=== PATIENT | female | born 1980 | race Caucasian/White ===

== ENCOUNTER 2016-10-28 11:38 | Emergency (ER) | payer SELFPAY ==
[~2016-10-28] VITALS: Ht 175.2 cm; Wt 90.7 kg
[~2016-10-28 11:38] MED LIST: 'PARAFON FORTE500 M1 PO; AMOXICILLIN500 M2 PO; AMOXICILLIN500 MG PO; ANAPROX DS550 MG PO; AUGMENTIN 875 M1 TAB PO; B12,B-12,B 12500 MC1 PO; BACTRIM DS 8001 TA1 PO; CATAFLAM50 MG PO; CIPROFLOXACIN500 MG PO; CLARITIN10 MG PO; COMBIVENT1 ARO IH; CYCLOBENZAPRINE10 MG PO; CYCLOBENZAPRINE5 M3 PO; DIFLUCAN150 MG PO; FLEXERIL5 MG PO; HYDROCODONE BIT1 T11 PO; IBUPROFEN800 MG PO; KEFLEX500 MG PO; KETOROLAC10 MG PO; MACROBID100 M1 PO; MOTRIN800 MG PO; Motrin,Rufen800 MG PO; NAPROSYN500 MG PO; NEURONTIN300 MG PO; NKHM PO; NORCO 325 MG-51 TAB PO; PYRIDIUM100 MG PO; PYRIDIUM200 MG PO; Percocet 325 MG1 TAB PO; SUBOXONE 8 MG-1 EACH SL; TIZANIDINE HCL4 MG PO; TORADOL10 MG PO; TRAMADOL HCL50 MG PO; TRIMOX500 MG PO; ULTRAM50 MG PO; VICO75300; VICODIN 5/500 505 MG PO; VICODIN ES 7501 TAB PO; XANAX2 MG; ZANAFLEX4 M1 PO; ZITHROMAX Z PA250 MG PO
[2016-10-28 11:45] VITALS: BP 143/90
[2016-10-28] MEDS ORDERED: IBU800 M1 PO (11:46)
== END 2016-10-28 14:29 | disposition home or self-care (01) ==
LOC: ED 11:38
DX: G43.909 Migraine, unspecified, not intractable, without status migrainosus (principal); R93.0 Abnormal findings on diagnostic imaging of skull and head, not elsewhere classified; F17.200 Nicotine dependence, unspecified, uncomplicated; Z88.8 Allergy status to other drugs, medicaments and biological substances

== ENCOUNTER 2017-01-12 10:44 | Emergency (ER) | payer OTHER ==
[~2017-01-12] VITALS: Ht 175.2 cm; Wt 90.7 kg
[~2017-01-12 10:44] MED LIST changes: +IBU800 M1 PO
[2017-01-12 10:53] VITALS: BP 138/83
[2017-01-12] MEDS ORDERED: AMOXICILLIN500 M2 PO (12:50)
[2017-01-12] MEDS ORDERED: ZYRTEC10 MG PO (12:50)
== END 2017-01-12 14:08 | disposition home or self-care (01) ==
LOC: ED 10:44
DX: J01.90 Acute sinusitis, unspecified (principal); F17.200 Nicotine dependence, unspecified, uncomplicated; Z88.8 Allergy status to other drugs, medicaments and biological substances

== ENCOUNTER 2017-09-15 10:55 | Emergency (ER) | payer OTHER ==
[~2017-09-15] VITALS: Ht 175.2 cm; Wt 90.7 kg
[~2017-09-15 10:55] MED LIST changes: +AMINOPHYLLIN200 MG PO; +FLOMAX0.4 MG PO; +HYDROCODONE-AC1 EAC1 PO; +ZOFRAN ODT4 MG SL; +ZYRTEC10 MG PO
[2017-09-15 10:58] VITALS: BP 127/77
[2017-09-15 11:52] LABS: BASO # 0.1 10*3/uL (0.0-0.1); BASO % 0.5 % (0.0-1.0); EOS # 0.3 10*3/uL (0.0-0.4); EOS % 2.2 % (1.0-4.0); HEMATOCRIT 40.2 % (37.0-47.0); HEMOGLOBIN 13.7 g/dl (12.0-16.0); LYMPH # 3.2 10*3/uL (1.3-4.4); LYMPH % 27.9 % (27.0-41.0); MEAN CELL VOLUME 89.5 fl (81.0-99.0); MEAN CORPUSCULAR HGB 30.5 pg (27.0-31.0); MEAN CORPUSCULAR HGB CONC 34.1 g/dl (33.0-37.0); MEAN PLATELET VOLUME 9.4 fl (9.6-12.3); MONO # 0.7 10*3/uL (0.1-1.0); MONO % 5.9 % (3.0-9.0); NEUT # 7.3 10*3/uL (2.3-7.9); NEUT % 63.1 % (47.0-73.0); PLATELET COUNT AUTOMATED 301 10*3/uL (130-400); RED BLOOD COUNT 4.49 10*6/uL (4.10-5.10); RED CELL DISTRI WIDTH 13.5 % (0-14.5); WHITE BLOOD COUNT 11.6 10*3/uL (4.8-10.8)
[2017-09-15 12:07] LABS: ALBUMIN 3.9 gm/dl (3.1-4.5); ALKALINE PHOSPHATASE 88 U/L (45-117); BUN 15 mg/dl (7-24); CHLORIDE 107 mmol/L (98-107); CREATININE 0.98 mg/dL (0.55-1.02); POTASSIUM 3.4 mmol/L (3.5-5.1); SGOT/AST 15 IU/L (3-35); SGPT/ALT 16 U/L (12-78); SODIUM 139 mmol/L (136-145); TOTAL PROTEIN 7.5 gm/dL (6.4-8.2)
[2017-09-15] MEDS ORDERED: NAPROSYN500 MG PO (14:06)
[2017-09-15] MEDS ORDERED: CYCLOBENZAPRINE5 M3 PO (14:06)
== END 2017-09-15 14:16 | disposition home or self-care (01) ==
LOC: ED 10:55
PROVIDERS: Nurse Practitioner
DX: S00.83XA Contusion of other part of head, initial encounter (principal); Z90.710 Acquired absence of both cervix and uterus; Y04.2XXA Assault by strike against or bumped into by another person, initial encounter; Y93.89 Activity, other specified; Y92.89 Other specified places as the place of occurrence of the external cause; Y99.8 Other external cause status; Z88.8 Allergy status to other drugs, medicaments and biological substances

== ENCOUNTER 2017-10-24 14:53 | Emergency (ER) | payer OTHER ==
[~2017-10-24] VITALS: Ht 175.2 cm; Wt 90.7 kg
[2017-10-24 14:56] VITALS: BP 139/93
[2017-10-24 15:12] LABS: BILIRUBIN NEGATIVE (NEGATIVE); BLOOD 1+ (NEGATIVE); CLARITY SL CLOUDY (CLEAR); COLOR YELLOW (YELLOW); GLUCOSE NEGATIVE (NEGATIVE); KETONE NEGATIVE (NEGATIVE); LEUKO ESTERASE TRACE (NEGATIVE); NITRITE NEGATIVE (NEGATIVE); SPECIFIC GRAVITY 1.015 (1.005-1.030); UROBILINOGEN 0.2 E.U./dl (0.2-1.0)
[2017-10-24 15:20] LABS: EPITHELIAL CELLS 15-20; MUCOUS TRACE
[2017-10-24 15:22] LABS: BASO # 0.1 10*3/uL (0.0-0.1); BASO % 0.6 % (0.0-1.0); EOS # 0.1 10*3/uL (0.0-0.4); EOS % 1.4 % (1.0-4.0); HEMATOCRIT 42.7 % (37.0-47.0); HEMOGLOBIN 14.2 g/dl (12.0-16.0); LYMPH # 2.3 10*3/uL (1.3-4.4); LYMPH % 24.6 % (27.0-41.0); MEAN CELL VOLUME 89.7 fl (81.0-99.0); MEAN CORPUSCULAR HGB 29.8 pg (27.0-31.0); MEAN CORPUSCULAR HGB CONC 33.3 g/dl (33.0-37.0); MEAN PLATELET VOLUME 9.5 fl (9.6-12.3); MONO # 0.4 10*3/uL (0.1-1.0); MONO % 4.7 % (3.0-9.0); NEUT # 6.5 10*3/uL (2.3-7.9); NEUT % 68.4 % (47.0-73.0); PLATELET COUNT AUTOMATED 297 10*3/uL (130-400); RED BLOOD COUNT 4.76 10*6/uL (4.10-5.10); RED CELL DISTRI WIDTH 13.2 % (0-14.5); WHITE BLOOD COUNT 9.4 10*3/uL (4.8-10.8)
[2017-10-24 15:38] LABS: ALBUMIN 3.8 gm/dl (3.1-4.5); ALKALINE PHOSPHATASE 100 U/L (45-117); BUN 11 mg/dl (7-24); CHLORIDE 107 mmol/L (98-107); CREATININE 0.93 mg/dL (0.55-1.02); POTASSIUM 3.9 mmol/L (3.5-5.1); SGOT/AST 9 IU/L (3-35); SGPT/ALT 15 U/L (12-78); SODIUM 140 mmol/L (136-145); TOTAL PROTEIN 7.4 gm/dL (6.4-8.2)
[2017-10-24 16:49] LABS: URINE AMPHETAMINES < 1000 (1000ng/ml); URINE BARBITURATES < 200 (200ng/ml); URINE BENZODIAZEPINES > 200 (200ng/ml); URINE CANNABINOIDS (THC) > 50 (50ng/ml); URINE COCAINE > 300 (300ng/ml); URINE METHADONE < 300 (300ng/ml); URINE OPIATES < 300 (300ng/ml)
[2017-10-24 16:50] LABS: URINE PHENCYCLIDINE < 25 (25ng/ml)
== END 2017-10-24 16:11 | disposition left against medical advice (07) ==
LOC: ED 14:53
PROVIDERS: Physician Assistant
DX: R10.31 Right lower quadrant pain (principal); R11.0 Nausea; R39.15 Urgency of urination; F17.200 Nicotine dependence, unspecified, uncomplicated; Z88.8 Allergy status to other drugs, medicaments and biological substances; Z90.710 Acquired absence of both cervix and uterus; Z98.51 Tubal ligation status; Z87.442 Personal history of urinary calculi

== ENCOUNTER 2018-05-26 12:00 | Emergency (ER) | payer MEDICAID ==
[~2018-05-26] VITALS: Ht 175.2 cm; Wt 81.6 kg
[2018-05-26 12:02] VITALS: BP 137/84
[2018-05-26] MEDS ORDERED: ROBAXIN500 M1 PO (14:02)
[2018-05-26] MEDS ORDERED: NAPROSYN500 MG PO (14:02)
== END 2018-05-26 14:30 | disposition home or self-care (01) ==
LOC: ED 12:00
DX: S39.012A Strain of muscle, fascia and tendon of lower back, initial encounter (principal); F17.200 Nicotine dependence, unspecified, uncomplicated; Z88.8 Allergy status to other drugs, medicaments and biological substances; Z90.710 Acquired absence of both cervix and uterus; X58.XXXA Exposure to other specified factors, initial encounter; Y93.89 Activity, other specified; Y92.89 Other specified places as the place of occurrence of the external cause; Y99.8 Other external cause status

== ENCOUNTER 2018-06-13 13:43 | Emergency (ER) | payer MEDICAID ==
[~2018-06-13] VITALS: Ht 175.2 cm; Wt 81.6 kg
[~2018-06-13 13:43] MED LIST changes: +ROBAXIN500 M1 PO
[2018-06-13 13:46] VITALS: BP 119/85
[2018-06-13 16:50] LABS: BASO # 0.1 10*3/uL (0.0-0.1); BASO % 0.7 % (0.0-1.0); EOS # 0.3 10*3/uL (0.0-0.4); EOS % 3.8 % (1.0-4.0); HEMATOCRIT 43.3 % (37.0-47.0); HEMOGLOBIN 14.3 g/dl (12.0-16.0); LYMPH # 3.4 10*3/uL (1.3-4.4); LYMPH % 47.8 % (27.0-41.0); MEAN CELL VOLUME 93.1 fl (81.0-99.0); MEAN CORPUSCULAR HGB 30.8 pg (27.0-31.0); MEAN PLATELET VOLUME 9.2 fl (9.6-12.3); MONO # 0.5 10*3/uL (0.1-1.0); MONO % 6.9 % (3.0-9.0); NEUT # 2.9 10*3/uL (2.3-7.9); NEUT % 40.7 % (47.0-73.0); PLATELET COUNT AUTOMATED 340 10*3/uL (130-400); RED BLOOD COUNT 4.65 10*6/uL (4.10-5.10); RED CELL DISTRI WIDTH 13.3 % (0-14.5); WHITE BLOOD COUNT 7.1 10*3/uL (4.8-10.8)
[2018-06-13 16:59] LABS: INTERNATIONAL NORM RATIO 0.9 (2.0-3.5)
[2018-06-13 17:05] LABS: BUN 13 mg/dl (7-24); CHLORIDE 105 mmol/L (98-107); CREATININE 0.94 mg/dL (0.55-1.02); POTASSIUM 4.5 mmol/L (3.5-5.1); SODIUM 138 mmol/L (136-145)
== END 2018-06-13 17:00 ==
LOC: ED 13:43
PROVIDERS: Emergency Medicine
DX: M54.41 Lumbago with sciatica, right side (principal); R20.0 Anesthesia of skin; R79.1 Abnormal coagulation profile; F17.200 Nicotine dependence, unspecified, uncomplicated; Z88.8 Allergy status to other drugs, medicaments and biological substances

== ENCOUNTER 2019-01-31 09:06 | Emergency (ER) | payer OTHER ==
[~2019-01-31] VITALS: Ht 175.2 cm; Wt 80.3 kg
[2019-01-31 09:08] VITALS: BP 140/104
[2019-01-31] MEDS ORDERED: NAPROSYN500 MG PO (09:38)
[2019-01-31] MEDS ORDERED: CEPHALEXIN500 M1 PO (09:38)
[2019-01-31] MEDS ORDERED: Bactroban Oint22 GM T (09:38)
== END 2019-01-31 09:43 | disposition home or self-care (01) ==
LOC: ED 09:06
DX: L02.31 Cutaneous abscess of buttock (principal); J34.0 Abscess, furuncle and carbuncle of nose; L02.415 Cutaneous abscess of right lower limb; F17.200 Nicotine dependence, unspecified, uncomplicated; Z88.8 Allergy status to other drugs, medicaments and biological substances; Z90.710 Acquired absence of both cervix and uterus

== ENCOUNTER 2019-02-02 18:01 | Emergency (ER) | payer OTHER ==
[~2019-02-02] VITALS: Ht 175.2 cm; Wt 79.4 kg
[~2019-02-02 18:01] MED LIST changes: +Bactroban Oint22 GM T; +CEPHALEXIN500 M1 PO
[2019-02-02 18:02] VITALS: BP 126/95
[2019-02-02 18:45] LABS: BASO % 0.3 % (0.0-1.0); EOS # 0.3 10*3/uL (0.0-0.4); EOS % 3.1 % (1.0-4.0); HEMATOCRIT 39.1 % (37.0-47.0); HEMOGLOBIN 12.8 g/dl (12.0-16.0); LYMPH # 2.7 10*3/uL (1.3-4.4); LYMPH % 31.4 % (27.0-41.0); MEAN CELL VOLUME 91.8 fl (81.0-99.0); MEAN CORPUSCULAR HGB CONC 32.7 g/dl (33.0-37.0); MEAN PLATELET VOLUME 9.1 fl (9.6-12.3); MONO # 0.4 10*3/uL (0.1-1.0); MONO % 4.2 % (3.0-9.0); NEUT # 5.2 10*3/uL (2.3-7.9); NEUT % 60.8 % (47.0-73.0); PLATELET COUNT AUTOMATED 286 10*3/uL (130-400); RED BLOOD COUNT 4.26 10*6/uL (4.10-5.10); RED CELL DISTRI WIDTH 12.8 % (0-14.5); WHITE BLOOD COUNT 8.6 10*3/uL (4.8-10.8)
[2019-02-02 18:59] LABS: ALBUMIN 3.4 gm/dl (3.1-4.5); ALKALINE PHOSPHATASE 100 U/L (45-117); BUN 14 mg/dl (7-24); CHLORIDE 101 mmol/L (98-107); CREATININE 0.67 mg/dL (0.55-1.02); POTASSIUM 3.4 mmol/L (3.5-5.1); SGOT/AST 18 IU/L (3-35); SGPT/ALT 26 U/L (12-78); SODIUM 137 mmol/L (136-145); TOTAL PROTEIN 7.5 gm/dL (6.4-8.2)
[2019-02-02] MEDS ORDERED: SEPTDS PO (19:10)
== END 2019-02-02 19:17 | disposition home or self-care (01) ==
LOC: ED 18:01
PROVIDERS: Physician Assistant
DX: J34.0 Abscess, furuncle and carbuncle of nose (principal); R11.0 Nausea; R53.83 Other fatigue; G43.909 Migraine, unspecified, not intractable, without status migrainosus; F17.200 Nicotine dependence, unspecified, uncomplicated; Z88.8 Allergy status to other drugs, medicaments and biological substances

== ENCOUNTER 2022-01-28 17:31 | Emergency (ER) | payer MEDICAID ==
[~2022-01-28] VITALS: Wt 90.7 kg
[~2022-01-28 17:31] MED LIST changes: +SEPTDS PO
[2022-01-28 17:43] VITALS: BP 148/98
[2022-01-28] MEDS ORDERED: PREDNISONE20 M1 PO (17:53)
== END 2022-01-28 18:16 | disposition home or self-care (01) ==
LOC: ED 17:31
DX: L23.7 Allergic contact dermatitis due to plants, except food (principal); Z88.8 Allergy status to other drugs, medicaments and biological substances; Z90.710 Acquired absence of both cervix and uterus; Z87.891 Personal history of nicotine dependence

== ENCOUNTER 2022-12-10 10:55 | Emergency (ER) | payer MEDICAID ==
[~2022-12-10] VITALS: Ht 175.2 cm; Wt 90.7 kg
[~2022-12-10 10:55] MED LIST changes: +PREDNISONE20 M1 PO
[2022-12-10 11:08] VITALS: BP 134/85
== END 2022-12-10 11:52 | disposition left against medical advice (07) ==
LOC: ED 10:55
DX: L23.7 Allergic contact dermatitis due to plants, except food (principal); Z53.21 Procedure and treatment not carried out due to patient leaving prior to being seen by health care provider

== ENCOUNTER 2022-12-21 05:57 | Emergency (ER) | payer MEDICAID ==
[~2022-12-21] VITALS: Wt 90.7 kg
== END 2022-12-21 09:09 | disposition home or self-care (01) ==
LOC: ED 05:57
DX: S93.401A Sprain of unspecified ligament of right ankle, initial encounter (principal); S90.01XA Contusion of right ankle, initial encounter; F41.9 Anxiety disorder, unspecified; G43.909 Migraine, unspecified, not intractable, without status migrainosus; Z87.442 Personal history of urinary calculi; Z88.8 Allergy status to other drugs, medicaments and biological substances; Z90.710 Acquired absence of both cervix and uterus; Z98.890 Other specified postprocedural states; Z98.51 Tubal ligation status; F17.290 Nicotine dependence, other tobacco product, uncomplicated; W19.XXXA Unspecified fall, initial encounter; Y93.89 Activity, other specified; Y92.89 Other specified places as the place of occurrence of the external cause; Y99.8 Other external cause status

== ENCOUNTER 2023-11-16 03:41 | Emergency (ER) | payer MEDICAID ==
[~2023-11-16] VITALS: Ht 165.1 cm; Wt 90.7 kg
[2023-11-16 03:57] VITALS: BP 143/89
[2023-11-16] MEDS ORDERED: Ketorolac Tromethamine 60 MG/2 ML VIAL IM ONE (04:30)
[2023-11-16] MEDS ORDERED: NAPROXEN250 MG PO (04:30)
== END 2023-11-16 04:40 | disposition home or self-care (01) ==
LOC: ED 03:41
DX: S90.32XA Contusion of left foot, initial encounter (principal); F41.9 Anxiety disorder, unspecified; G43.909 Migraine, unspecified, not intractable, without status migrainosus; F17.200 Nicotine dependence, unspecified, uncomplicated; Z87.442 Personal history of urinary calculi; Z88.8 Allergy status to other drugs, medicaments and biological substances; Z90.710 Acquired absence of both cervix and uterus; Z98.890 Other specified postprocedural states; Z98.51 Tubal ligation status; W20.8XXA Other cause of strike by thrown, projected or falling object, initial encounter; Y93.89 Activity, other specified; Y92.009 Unspecified place in unspecified non-institutional (private) residence as the place of occurrence of the external cause; Y99.8 Other external cause status

== ENCOUNTER 2023-12-22 11:15 | Emergency (ER) | payer MEDICAID ==
[~2023-12-22] VITALS: Ht 175.2 cm; Wt 90.7 kg
[~2023-12-22 11:15] MED LIST changes: +NAPROXEN250 MG PO
[2023-12-22] MEDS ORDERED: methylPREDNISolone sod succ 125 MG VIAL IM ONE (13:05)
[2023-12-22 13:20] LABS: BASO # 0.1 10*3/uL (0.0-0.1); BASO % 0.6 % (0.0-1.0); EOS # 0.1 10*3/uL (0.0-0.4); EOS % 1.5 % (1.0-4.0); HEMATOCRIT 39.4 % (37.0-47.0); LYMPH # 2.6 10*3/uL (1.3-4.4); LYMPH % 31.7 % (27.0-41.0); MEAN CELL VOLUME 90.6 fl (81.0-99.0); MEAN CORPUSCULAR HGB 29.7 pg (27.0-31.0); MEAN CORPUSCULAR HGB CONC 32.7 g/dl (33.0-37.0); MEAN PLATELET VOLUME 8.6 fl (9.6-12.3); MONO # 0.6 10*3/uL (0.1-1.0); MONO % 6.8 % (3.0-9.0); NEUT # 4.8 10*3/uL (2.3-7.9); PLATELET COUNT AUTOMATED 314 10*3/uL (130-400); RED BLOOD COUNT 4.35 10*6/uL (4.10-5.10); RED CELL DISTRI WIDTH 13.1 % (0-14.5); WHITE BLOOD COUNT 8.1 10*3/uL (4.8-10.8)
[2023-12-22 13:29] LABS: ACT PARTIAL THROMBO TIME 26.2 SECONDS (20.0-32.1)
[2023-12-22 13:40] LABS: BUN 8 mg/dl (9-23); CHLORIDE 104 mmol/L (98-107); POTASSIUM 3.1 mmol/L (3.4-5.1)
[2023-12-22 14:36] VITALS: BP 132/70
[2023-12-22] MEDS ORDERED: POTASSIUM CHLORIDE 20 MEQ TAB PO ONE (14:40)
[2023-12-22] MEDS ORDERED: METHOCARBAMOL500 M1 PO (15:01)
[2023-12-22] MEDS ORDERED: PREDNISONE20 M1 PO (15:01)
== END 2023-12-22 15:28 | disposition home or self-care (01) ==
LOC: ED 11:15
PROVIDERS: Nurse Practitioner
DX: M25.512 Pain in left shoulder (principal); R10.2 Pelvic and perineal pain; G43.909 Migraine, unspecified, not intractable, without status migrainosus; F17.200 Nicotine dependence, unspecified, uncomplicated; F41.9 Anxiety disorder, unspecified; Z88.8 Allergy status to other drugs, medicaments and biological substances; Z90.710 Acquired absence of both cervix and uterus; Z98.51 Tubal ligation status; Z98.890 Other specified postprocedural states; Z87.442 Personal history of urinary calculi

== ENCOUNTER 2024-07-03 14:23 | Emergency (ER) | payer MEDICAID ==
[~2024-07-03] VITALS: Ht 175.2 cm; Wt 86.2 kg
[~2024-07-03 14:23] MED LIST changes: +METHOCARBAMOL500 M1 PO
[2024-07-03 14:29] VITALS: BP 142/84
[2024-07-03] MEDS ORDERED: CEPHALEXIN500 M1 PO (14:39)
[2024-07-03] MEDS ORDERED: VIBRAMYCIN100 MG PO (14:39)
== END 2024-07-03 14:47 | disposition home or self-care (01) ==
LOC: ED 14:23
DX: L01.02 Bockhart's impetigo (principal); F17.200 Nicotine dependence, unspecified, uncomplicated; Z88.8 Allergy status to other drugs, medicaments and biological substances; Z79.899 Other long term (current) drug therapy; Z98.890 Other specified postprocedural states; Z90.710 Acquired absence of both cervix and uterus